=== PATIENT | female | born 1955 | race Caucasian/White ===

== ENCOUNTER 2016-10-17 09:01 | Observation (INO) | payer BC, OTHER ==
[~2016-10-17] VITALS: Ht 175.3 cm; Wt 126.8 kg
[2016-10-17] MEDS ORDERED: DILTIAZEM 5 MG/ML, 5ML ONE (10:10)
[2016-10-17 10:30] LABS: HEMOGLOBIN 13.1 g/dL (11.7-16.4)
[2016-10-17] MEDS ORDERED: DILTIAZEM 5 MG/ML, 5ML IV ONE (10:30)
[2016-10-17] MEDS ORDERED: SODIUM CHLORIDE FLUSH 10ML SYR IVF ONE (10:30)
[2016-10-17 10:38] LABS: ASPARTATE AMINO TRANSFERASE 11 U/L (15-37); BLOOD UREA NITROGEN 16 mg/dL (7-18)
[2016-10-17 10:46] LABS: IS PT STATUS REG ER OR PRE ER? YES
[2016-10-17] MEDS ORDERED: CARV12.543 PO (11:30)
[2016-10-17] MEDS ORDERED: SIMV20TA3 PO (11:33)
[2016-10-17] MEDS ORDERED: PIOG30TA4 PO (11:34)
[2016-10-17] MEDS ORDERED: ASPI-496 PO (11:34)
[2016-10-17] MEDS ORDERED: LABETALOL 5MG/ML, 20ML IV PRN (12:00)
[2016-10-17] MEDS ORDERED: DOCUSATE 100 MG CAPSULE PO PRN (12:00)
[2016-10-17] MEDS ORDERED: HYDROcodone/APAP 5/325 TABLET PO PRN (12:00)
[2016-10-17] MEDS ORDERED: POLYETHYLENE GLYCOL 17 GM PACKET PO PRN (12:00)
[2016-10-17] MEDS ORDERED: ACETAMINOPHEN 325 MG TABLET PO PRN (12:00)
[2016-10-17] MEDS ORDERED: MORPHINE SULFATE 4 MG/ML, 1ML IVPush PRN (12:00)
[2016-10-17] MEDS ORDERED: ONDANSETRON 2MG/ML, 2ML IVP PRN (12:00)
[2016-10-17] MEDS ORDERED: SODIUM CHLORIDE FLUSH 10ML SYR IVF PRN (12:00)
[2016-10-17] MEDS ORDERED: BISACODYL 10 MG SUPP PR PRN (12:00)
[2016-10-17 13:52] VITALS: BP 179/118
[2016-10-17] MEDS ORDERED: LOSA25TA5 PO (14:10)
[2016-10-17] MEDS: INSULIN REGULAR 100 UNITS/ML, 3ML VIAL SQ-INSULIN SCH ×2 (16:00→21:36)
[2016-10-17 17:30] VITALS: BP 174/122
[2016-10-17] MEDS: CARVEDILOL 25 MG TABLET PO SCH (17:43)
[2016-10-17] MEDS ORDERED: CARVEDILOL 25 MG TABLET PO SCH (18:00)
[2016-10-17 18:43] VITALS: BP 150/84
[2016-10-17 19:00] VITALS: BP 136/85
[2016-10-17] MEDS ORDERED: LOSARTAN 25MG TABLET PO SCH (21:00)
[2016-10-17] MEDS ORDERED: SIMVASTATIN 20 MG TABLET PO SCH (21:00)
[2016-10-17 21:22] VITALS: BP_SYST 150; BP_SYST 172; BP_DIAS 90; BP_DIAS 91
[2016-10-17] MEDS: APIXABAN 5 MG TABLET PO SCH (21:35)
[2016-10-17] MEDS: SODIUM CHLORIDE FLUSH 10ML SYR IVF SCH (21:35)
[2016-10-18 00:47] VITALS: BP 137/81
[2016-10-18 03:55] VITALS: BP 163/96
[2016-10-18] MEDS: CARVEDILOL 25 MG TABLET PO SCH (05:08)
[2016-10-18 06:24] LABS: BLOOD UREA NITROGEN 11 mg/dL (7-18)
[2016-10-18 07:47] VITALS: BP 140/87
[2016-10-18] MEDS ORDERED: ASPIRIN 81 MG TABLET EC PO SCH (09:00)
[2016-10-18] MEDS: SODIUM CHLORIDE FLUSH 10ML SYR IVF SCH (09:25)
[2016-10-18] MEDS: APIXABAN 5 MG TABLET PO SCH (09:25)
[2016-10-18] MEDS: INSULIN REGULAR 100 UNITS/ML, 3ML VIAL SQ-INSULIN SCH ×2 (09:25→12:18)
[2016-10-18] MEDS ORDERED: APIX5TAB PO (11:38)
[2016-10-18] MEDS ORDERED: CARV25TA12 PO (11:38)
[2016-10-18 13:57] VITALS: BP 137/84
[2016-10-18] MEDS ORDERED: CARVEDILOL 25 MG TABLET PO SCH (18:00)
== END 2016-10-18 15:52 | disposition home or self-care (01) ==
LOC: ED 10:50 → EDIP 11:40 → INTOOBSV 11:40 → 5SO 13:51
PROVIDERS: ADMIT Hospitalist; ATTEND Hospitalist
DX: I48.91 Unspecified atrial fibrillation (principal); D68.69 Other thrombophilia; E11.65 Type 2 diabetes mellitus with hyperglycemia; I13.0 Hypertensive heart and chronic kidney disease with heart failure and stage 1 through stage 4 chronic kidney disease, or unspecified chronic kidney disease; N18.3 Chronic kidney disease, stage 3 (moderate); I50.30 Unspecified diastolic (congestive) heart failure; E66.9 Obesity, unspecified; E11.22 Type 2 diabetes mellitus with diabetic chronic kidney disease; E78.5 Hyperlipidemia, unspecified; Z82.3 Family history of stroke; Z79.82 Long term (current) use of aspirin; Z83.3 Family history of diabetes mellitus; Z82.49 Family history of ischemic heart disease and other diseases of the circulatory system; Z87.891 Personal history of nicotine dependence
CPT/HCPCS: 36415; 71010; 80048; 80053; 80061; 82962; 83036; 83735; 84439; 84443; 84484; 85025; 85610; 85730; 93005; 93306; 96372; 96374; 96375; 99285; G0378; J1815

== ENCOUNTER 2016-11-20 09:33 | Day surgery (SDC) | payer BC ==
[~2016-11-20] VITALS: Ht 175.3 cm; Wt 130.0 kg
[~2016-11-20 09:33] MED LIST: APIX5TAB PO; ASPI-496 PO; CARV12.543 PO; CARV25TA12 PO; LOSA25TA5 PO; PIOG30TA4 PO; SIMV20TA3 PO
[2016-11-20] MEDS ORDERED: APIX5TAB PO (10:10)
[2016-11-20] MEDS ORDERED: CHOL100015 PO (10:10)
[2016-11-20] MEDS ORDERED: CARV-39 PO (10:10)
[2016-11-20 10:25] LABS: BLOOD UREA NITROGEN 12 mg/dL (7-18)
[2016-11-20] MEDS ORDERED: PLEASE ENTER HEIGHT AND WEIGHT MC SCH (10:30)
[2016-11-20] MEDS ORDERED: PROPOFOL 10 MG/ML, 20ML ONE (11:28)
[2016-11-20] MEDS ORDERED: SODIUM CHLORIDE FLUSH 10ML SYR IVF SCH (21:00)
== END 2016-11-20 12:40 | disposition home or self-care (01) ==
LOC: CACL 09:33
PROVIDERS: ATTEND Internal Medicine Cardiovascular Disease
DX: I48.92 Unspecified atrial flutter (principal); E11.22 Type 2 diabetes mellitus with diabetic chronic kidney disease; I12.9 Hypertensive chronic kidney disease with stage 1 through stage 4 chronic kidney disease, or unspecified chronic kidney disease; N18.3 Chronic kidney disease, stage 3 (moderate); E66.01 Morbid (severe) obesity due to excess calories; Z68.41 Body mass index [BMI] 40.0-44.9, adult; E11.65 Type 2 diabetes mellitus with hyperglycemia; E11.21 Type 2 diabetes mellitus with diabetic nephropathy; E78.5 Hyperlipidemia, unspecified; Z82.49 Family history of ischemic heart disease and other diseases of the circulatory system
CPT/HCPCS: 36415; 80048; 85610; 92960; J2704

== ENCOUNTER 2017-01-22 06:35 | Day surgery (SDC) | payer BC ==
[2017-01-21 14:51] LABS: ASPARTATE AMINO TRANSFERASE 13 U/L (15-37); BLOOD UREA NITROGEN 14 mg/dL (7-18)
[2017-01-21 15:26] VITALS: BP 155/94
[~2017-01-22] VITALS: Ht 175.3 cm; Wt 131.8 kg
[~2017-01-22 06:35] MED LIST changes: +CARV-39 PO; +CHOL100015 PO; +calcium PO
[2017-01-22] MEDS ORDERED: SODIUM CHLORIDE 0.9% 1,000 ML IV SCH (06:44)
[2017-01-22] MEDS ORDERED: MIDAZOLAM 1 MG/ML, 5ML ONE (07:24)
[2017-01-22] MEDS ORDERED: FENTANYL PF 250 MCG/5ML ONE (07:24)
[2017-01-22] MEDS ORDERED: BUPIVACAINE 0.25% ONE (08:06)
[2017-01-22] MEDS ORDERED: LABETALOL 5MG/ML, 20ML IV PRN (10:30)
[2017-01-22] MEDS ORDERED: HYDROmorphone 1 MG/ML, 1ML IV PRN (10:30)
[2017-01-22] MEDS ORDERED: PROMETHAZINE 25 MG/ML, 1ML IV PRN (10:30)
[2017-01-22] MEDS ORDERED: FENTANYL PF 100 MCG/2ML IV PRN (10:30)
[2017-01-22] MEDS ORDERED: ONDANSETRON 2MG/ML, 2ML IVPush PRN (10:30)
[2017-01-22] MEDS ORDERED: ACETAMINOPHEN 325 MG TABLET PO PRN (10:30)
[2017-01-22] MEDS ORDERED: hydrALAzine 20 MG/ML, 1ML IV PRN (10:30)
[2017-01-22] MEDS ORDERED: ALBUTEROL SULFATE 2.5 MG/3 ML NPPB PRN (10:30)
[2017-01-22] MEDS ORDERED: MIDAZOLAM 1 MG/ML, 2ML IV PRN (10:30)
[2017-01-22] MEDS ORDERED: MEPERIDINE/PF 25MG/0.5ML IVPush PRN (10:30)
[2017-01-22] MEDS ORDERED: OXYcodone 5 MG/5 ML ORAL.SOL UDC PO PRN (10:30)
[2017-01-22] MEDS ORDERED: DEXAMETHASONE 4 MG/ML, 1ML ONE (11:09)
[2017-01-22] MEDS ORDERED: ONDANSETRON 2MG/ML, 2ML ONE (11:09)
[2017-01-22] MEDS ORDERED: EPHEDRINE 50 MG/ML, 1ML ONE (11:09)
[2017-01-22] MEDS ORDERED: ROCURONIUM 10 MG/ML ONE (11:09)
[2017-01-22] MEDS ORDERED: PROPOFOL 10 MG/ML, 20ML ONE (11:09)
[2017-01-22] MEDS ORDERED: PHENYLEPHRINE 10 MG/ML ONE (11:09)
[2017-01-22] MEDS ORDERED: SUCCINYLCHOLINE 20 MG/ML, 10ML ONE (11:09)
[2017-01-22] MEDS ORDERED: hydrALAzine 20 MG/ML, 1ML ONE (11:26)
== END 2017-01-22 13:40 | disposition home or self-care (01) ==
LOC: CACL 06:35
PROVIDERS: ATTEND Internal Medicine Cardiovascular Disease
DX: I48.3 Typical atrial flutter (principal); Z98.890 Other specified postprocedural states; E78.5 Hyperlipidemia, unspecified; I10 Essential (primary) hypertension; E11.9 Type 2 diabetes mellitus without complications; E66.01 Morbid (severe) obesity due to excess calories; Z68.41 Body mass index [BMI] 40.0-44.9, adult; Z88.8 Allergy status to other drugs, medicaments and biological substances; E78.1 Pure hyperglyceridemia
CPT/HCPCS: 36415; 71020; 80053; 85025; 85610; 85730; 93005; 93613; 93621; 93653; C1730; C1731; C1766; C1894; C2630; J0330; J0360; J1100; J2250; J2370; J2405; J2704; J3010; J3490

== ENCOUNTER 2018-12-08 16:39 | Emergency (ER) | payer BC, OTHER ==
[~2018-12-08] VITALS: Ht 175.3 cm; Wt 146.6 kg
[~2018-12-08 16:39] MED LIST changes: +LOSA25TA25 PO; -LOSA25TA5 PO
[2018-12-08 17:23] LABS: BASOPHILS # (AUTO) 0.04 x10^3/uL (0-0.1); BASOPHILS % (AUTO) 1 % (0-1); EOSINOPHILS # (AUTO) 0.31 x10^3/uL (0-0.4); EOSINOPHILS % (AUTO) 4 % (1-7); LYMPHOCYTES # (AUTO) 0.99 x10^3/uL (1-3.4); LYMPHOCYTES % (AUTO) 14 % (22-44); MD NO; MEAN CORPUSCULAR HGB CONC 33.4 g/dL (32.4-35.8); MEAN CORPUSCULAR VOLUME 92.6 fL (80-100); MEAN PLATELET VOLUME 10.1 fL (7.4-10.4); MONOCYTES # (AUTO) 0.42 x10^3/uL (0.2-0.8); MONOCYTES % (AUTO) 6 % (2-9); NEUTROPHILS # (AUTO) 5.43 x10^3/uL (1.8-6.8); NEUTROPHILS % (AUTO) 76 % (42-75); PLATELET COUNT 196 x10^3/uL (130-400); RED BLOOD COUNT 4.34 x10^6/uL (3.82-5.3); RED CELL DISTRIBUTION WIDTH 15.6 % (9.6-15.2)
[2018-12-08 17:31] LABS: ANION GAP 5 mmol/L (5-15); CALCIUM 9.1 mg/dL (8.5-10.1); CHLORIDE 108 mmol/L (98-107); CREATININE 1.01 mg/dL (0.55-1.02)
--- NOTE | 2018-12-08 18:11 | NUR ---
TO ROOM FROM LOBBY. NAD.
[2018-12-08 19:31] LABS: TROPONIN I < 0.015 ng/mL (0.000-0.045)
--- NOTE | 2018-12-08 19:36 | NUR ---
PT TAKEN TO CT VIA [facility]AL[facility].
[2018-12-08] MEDS ORDERED: OMNIPAQUE 350 MG/ML, 150 ML BOTTLE ONE (20:00)
[2018-12-08 21:19] VITALS: BP 181/85
--- NOTE | 2018-12-08 21:20 | NUR ---
PT D/C WITH D/C SUMMARY. ALL QUESTIONS ANSWERED. PT DENIES ANY OTHER NEEDS PERTAINING TO THIS VISIT. PT AMBULATES TO REGISTRATION DESK WITH STEADY GAIT FOR D/C HOME.
== END 2018-12-08 21:22 | disposition home or self-care (01) ==
LOC: ED 21:16
DX: R55 Syncope and collapse (principal); I48.91 Unspecified atrial fibrillation; I10 Essential (primary) hypertension; E11.9 Type 2 diabetes mellitus without complications
CPT/HCPCS: 36415; 71275; 80048; 83735; 84484; 85025; 85379; 93005; 99284; Q9967

== ENCOUNTER 2019-02-10 08:32 | Emergency (ER) | payer OTHER ==
[~2019-02-10] VITALS: Ht 175.3 cm; Wt 140.0 kg
[2019-02-10 09:30] LABS: BASOPHILS # (AUTO) 0.04 x10^3/uL (0-0.1); BASOPHILS % (AUTO) 1 % (0-1); EOSINOPHILS # (AUTO) 0.55 x10^3/uL (0-0.4); EOSINOPHILS % (AUTO) 8 % (1-7); LYMPHOCYTES # (AUTO) 0.93 x10^3/uL (1-3.4); LYMPHOCYTES % (AUTO) 13 % (22-44); MD NO; MEAN CORPUSCULAR HEMOGLOBIN 30.8 pg (27.0-34.8); MEAN CORPUSCULAR HGB CONC 32.4 g/dL (32.4-35.8); MEAN CORPUSCULAR VOLUME 95.1 fL (80-100); MEAN PLATELET VOLUME 8.9 fL (7.4-10.4); MONOCYTES # (AUTO) 0.58 x10^3/uL (0.2-0.8); MONOCYTES % (AUTO) 8 % (2-9); NEUTROPHILS # (AUTO) 5.04 x10^3/uL (1.8-6.8); NEUTROPHILS % (AUTO) 71 % (42-75); PLATELET COUNT 204 x10^3/uL (130-400); RED BLOOD COUNT 4.07 x10^6/uL (3.82-5.3); RED CELL DISTRIBUTION WIDTH 16.1 % (9.6-15.2)
[2019-02-10 09:42] LABS: ALBUMIN 3.5 g/dL (3.4-5.0); ANION GAP 7 mmol/L (5-15); CALCIUM 9.2 mg/dL (8.5-10.1); CHLORIDE 106 mmol/L (98-107); CREATININE 1.07 mg/dL (0.55-1.02)
[2019-02-10 09:46] LABS: TROPONIN I < 0.015 ng/mL (0.000-0.045)
--- NOTE | 2019-02-10 09:54 | NUR ---
pt upright on gurney awake & comfortable, responds approp to staff, NAD, comfort measures provided, call light within reach.
[2019-02-10 11:16] VITALS: BP 185/69
--- NOTE | 2019-02-10 11:21 | NUR ---
Patient given discharge instructions and they have confirmed that they understand the instructions. Patient ambulatory with steady gait.
== END 2019-02-10 11:40 | disposition home or self-care (01) ==
LOC: ED 09:16
DX: F41.1 Generalized anxiety disorder (principal); R42 Dizziness and giddiness; I10 Essential (primary) hypertension; E11.21 Type 2 diabetes mellitus with diabetic nephropathy; I48.91 Unspecified atrial fibrillation
CPT/HCPCS: 36415; 71045; 80048; 82040; 83880; 84484; 85025; 93005; 99284

== ENCOUNTER → 2020-02-13 | Outpatient (CLI) | payer OTHER ==
[~2020-02-13] MED LIST changes: -PIOG30TA4 PO; +PIOG30TA68 PO; +SIMV20TA19 PO; -SIMV20TA3 PO
== END | disposition home or self-care (01) ==
LOC: CVU 07:41
PROVIDERS: ATTEND Internal Medicine Cardiovascular Disease
DX: I08.3 Combined rheumatic disorders of mitral, aortic and tricuspid valves (principal); I27.20 Pulmonary hypertension, unspecified; R06.02 Shortness of breath
CPT/HCPCS: 93306

== ENCOUNTER 2020-05-14 05:01 | Emergency (ER) | payer OTHER ==
[~2020-05-14] VITALS: Ht 177.8 cm; Wt 138.4 kg
[2020-05-14] MEDS ORDERED: ASPIRIN 81 MG TABLET CHEW PO ONE (05:30)
[2020-05-14] MEDS ORDERED: NITROGLYCERIN SINGLE TAB 0.4 MG SL PRN (05:30)
[2020-05-14] MEDS ORDERED: SODIUM CHLORIDE FLUSH 10ML SYR IVF ONE (05:30)
[2020-05-14] MEDS ORDERED: NITROGLYCERIN SINGLE TAB 0.4 MG SL ONE (05:43)
[2020-05-14] MEDS ORDERED: ASPIRIN 81 MG TABLET CHEW ONE (05:44)
[2020-05-14 05:57] LABS: BASOPHILS % (AUTO) 1 % (0-1); EOSINOPHILS % (AUTO) 8 % (1-7); LYMPHOCYTES % (AUTO) 22 % (22-44); MEAN CORPUSCULAR HEMOGLOBIN 31.1 pg (27.0-34.8); MEAN CORPUSCULAR HGB CONC 32.9 g/dL (32.4-35.8); MEAN PLATELET VOLUME 9.8 fL (7.4-10.4); MONOCYTES % (AUTO) 10 % (2-9); NEUTROPHILS % (AUTO) 59 % (42-75); PLATELET COUNT 193 x10^3/uL (130-400); RED BLOOD COUNT 4.17 x10^6/uL (3.82-5.3); RED CELL DISTRIBUTION WIDTH 15.1 % (9.6-15.2)
[2020-05-14 06:06] LABS: ALANINE AMINOTRANSFERASE 14 U/L (12-78); ALBUMIN 3.1 g/dL (3.4-5.0); ANION GAP 3 mmol/L (5-15); CALCIUM 8.7 mg/dL (8.5-10.1); CHLORIDE 104 mmol/L (98-107)
[2020-05-14 06:11] LABS: ALKALINE PHOSPHATASE 105 U/L (45-117); BILIRUBIN,TOTAL 0.7 mg/dL (0.2-1.0); TOTAL PROTEIN 7.7 g/dL (6.4-8.2); TROPONIN I < 0.015 ng/mL (0.000-0.045)
[2020-05-14 06:20] LABS: MD NO
--- NOTE | 2020-05-14 07:07 | NUR ---
REPORT FROM KARIE DIXON, PT RESTING IN [facility] ON MONITOR WITH AT BEDSIDE. REPEAT TROPO DRAWN, AWAITING RESULTS.
[2020-05-14 07:20] LABS: TROPONIN I < 0.015 ng/mL (0.000-0.045)
[2020-05-14] MEDS ORDERED: LORazepam 1MG TABLET ONE (07:54)
[2020-05-14] MEDS ORDERED: CARVEDILOL 12.5 MG TABLET ONE (07:54)
[2020-05-14 07:57] VITALS: BP 173/98
--- NOTE | 2020-05-14 07:58 | NUR ---
PT C/O SHOULDER PAIN AND ANXIETY, MD NOTIFIED. PT MEDICATED PER OCT, REPEAT EKG DONE
[2020-05-14] MEDS ORDERED: CARVEDILOL 25 MG TABLET PO ONE (08:00)
[2020-05-14] MEDS ORDERED: LORazepam 1MG TABLET PO ONE (08:00)
--- NOTE | 2020-05-14 08:15 | NUR ---
Nicholas RN note: This RN answered pt's call light. Pt reports she needs to use the restroom. Pt ambulatory to bathroom and back to bed without difficulty, gait steady. Pt able to position self for comfort in bed. All monitors reapplied, all safety measures observed. Pt denies other needs.
== END 2020-05-14 08:36 | disposition home or self-care (01) ==
LOC: ED 07:27
DX: R07.89 Other chest pain (principal); I48.91 Unspecified atrial fibrillation; R94.31 Abnormal electrocardiogram [ECG] [EKG]; I10 Essential (primary) hypertension; E11.9 Type 2 diabetes mellitus without complications
CPT/HCPCS: 36415; 71045; 80053; 83735; 83880; 84484; 85025; 93005; 99285

== ENCOUNTER 2020-07-14 10:32 | Observation (INO) | payer OTHER ==
[~2020-07-14] VITALS: Ht 175.3 cm; Wt 103.9 kg
--- NOTE | 2020-07-14 11:01 | NUR ---
PT TO ROOM AT THIS TIME.
--- NOTE | 2020-07-14 11:18 | NUR ---
pt presentts to ED with c/o high bp readings on home monitor x 2 days, (highest 160/120) states BP cuff told her she was in afib. pt has paroxysmal afib hx. pt states she felt near syncopal this am, denies CP. pt is a&o, resps even and unlabored. pt is neurologically intact, no focal weakness noted, no drift, bilteral grasp equal. EKG taken in triage, all monitors in place. EDMD Law at bedside for eval. call light in reach.
[2020-07-14 11:30] LABS: BASOPHILS % (AUTO) 1 % (0-1); EOSINOPHILS % (AUTO) 3 % (1-7); LYMPHOCYTES % (AUTO) 15 % (22-44); MEAN CORPUSCULAR HEMOGLOBIN 31.5 pg (27.0-34.8); MEAN CORPUSCULAR HGB CONC 33.1 g/dL (32.4-35.8); MEAN PLATELET VOLUME 9.6 fL (7.4-10.4); MONOCYTES % (AUTO) 7 % (2-9); NEUTROPHILS % (AUTO) 74 % (42-75); PLATELET COUNT 215 x10^3/uL (130-400); RED BLOOD COUNT 4.19 x10^6/uL (3.82-5.3); RED CELL DISTRIBUTION WIDTH 14.6 % (9.6-15.2)
[2020-07-14 11:32] LABS: MD NO
[2020-07-14 11:42] LABS: ALANINE AMINOTRANSFERASE 14 U/L (12-78); ALBUMIN 3.2 g/dL (3.4-5.0); ANION GAP 6 mmol/L (5-15); CALCIUM 8.9 mg/dL (8.5-10.1); CHLORIDE 106 mmol/L (98-107); CREATININE 1.15 mg/dL (0.55-1.02)
[2020-07-14 11:45] LABS: ALKALINE PHOSPHATASE 90 U/L (45-117); BILIRUBIN,TOTAL 0.9 mg/dL (0.2-1.0); TOTAL PROTEIN 7.9 g/dL (6.4-8.2)
[2020-07-14 12:24] LABS: TROPONIN I < 0.015 ng/mL (0.000-0.045)
--- NOTE | 2020-07-14 12:40 | NUR ---
PT RESTING ON GURNEY, A&O, RESPS EVEN AND UNLABORED. SINUS CURT RATE 50'S ON MAGNETO SPECIALIST WITH NO ECTOPY NOTED. PT GIVEN WARM BLANKET. CALL LIGHT IN REACH. CHART UP FOR RECHECK. AWAITING MD AND DISPO.
[2020-07-14] MEDS ORDERED: SODIUM CHLORIDE 0.9% 1,000 ML IV ONE (13:30)
[2020-07-14] MEDS ORDERED: vitamin d PO (14:31)
[2020-07-14] MEDS ORDERED: HYDR25TA6 PO (14:31)
--- NOTE | 2020-07-14 14:32 | NUR ---
med rec completed, pt a&o, resps even and unlabored. pt denies pain. call light in reach. pt updated with results and poc by . pt awaiting hospitalist assessment and admit bed assignment.
--- NOTE | 2020-07-14 16:31 | NUR ---
hospital bed requested from housekeeping. admitting MD Lazo notified that pt has not been seen by admitting hospitalist, no admit orders present. per [place], MD East is admitting. MD East notified that pt has been assigned to him and requires admit orders.
--- NOTE | 2020-07-14 16:50 | NUR ---
report given to RN Ole at bedside. hospitalist at bedside for admit assessment.
[2020-07-14] MEDS ORDERED: CYCLOBENZAPRINE 10 MG TABLET PO PRN (17:00)
[2020-07-14] MEDS ORDERED: GUAIFENESIN/DM 200-20MG, 10ML UDC PO PRN (17:00)
[2020-07-14] MEDS ORDERED: morphine SULFATE 10 MG/ML, 1ML IVPush PRN (17:00)
[2020-07-14] MEDS ORDERED: ACETAMINOPHEN 325 MG TABLET PO PRN (17:00)
[2020-07-14] MEDS ORDERED: hydrALAzine 20 MG/ML, 1ML IVPush PRN (17:00)
[2020-07-14] MEDS ORDERED: HYDROcodone/APAP 5/325 TABLET PO PRN (17:00)
[2020-07-14] MEDS ORDERED: ZOLPIDEM 5MG TABLET PO PRN (17:00)
[2020-07-14] MEDS ORDERED: ENOXAPARIN 40 MG/0.4 ML SQ SCH (17:00)
[2020-07-14] MEDS ORDERED: ONDANSETRON 2MG/ML, 2ML IVPush PRN (17:00)
[2020-07-14] MEDS ORDERED: DOCUSATE 100 MG CAPSULE PO PRN (17:00)
[2020-07-14] MEDS ORDERED: ENOXAPARIN 40 MG/0.4 ML ONE (17:47)
--- NOTE | 2020-07-14 17:50 | NUR ---
INSULIN REQUESTED FROM PHARMACY.
[2020-07-14] MEDS: INSULIN LISPRO 100 UNITS/ML, PEN SQ-INSULIN SCH ×2 (18:44→21:51)
--- NOTE | 2020-07-14 19:06 | NUR ---
PT ATE 100% OF DINNER MEAL.
[2020-07-14 19:30] LABS: TROPONIN I < 0.015 ng/mL (0.000-0.045)
[2020-07-14] MEDS ORDERED: SIMVASTATIN 20 MG TABLET PO SCH (21:00)
[2020-07-14] MEDS ORDERED: FAMOTIDINE 20 MG TABLET ONE (21:10)
[2020-07-14] MEDS: FAMOTIDINE 20 MG TABLET PO SCH (21:50)
[2020-07-14] MEDS: CARVEDILOL 25 MG TABLET PO SCH (21:50)
--- NOTE | 2020-07-14 21:57 | NUR ---
PT MEDICATED PER MAR, ALL NEEDS MET AT THIS TIME.
--- NOTE | 2020-07-14 23:01 | NUR ---
REPORT TO BABAK DIXON.
[2020-07-15 00:02] VITALS: BP 151/77
[2020-07-15] MEDS ORDERED: IRBE300T8 PO (00:05)
[2020-07-15 00:07] VITALS: BP 151/77
[2020-07-15 06:03] LABS: ANION GAP 3 mmol/L (5-15); BASOPHILS % (AUTO) 1 % (0-1); CALCIUM 8.3 mg/dL (8.5-10.1); CHLORIDE 107 mmol/L (98-107); CREATININE 1.02 mg/dL (0.55-1.02); EOSINOPHILS % (AUTO) 4 % (1-7); LYMPHOCYTES % (AUTO) 19 % (22-44); MEAN CORPUSCULAR HEMOGLOBIN 31.9 pg (27.0-34.8); MEAN CORPUSCULAR HGB CONC 33.1 g/dL (32.4-35.8); MONOCYTES % (AUTO) 11 % (2-9); NEUTROPHILS % (AUTO) 65 % (42-75); PLATELET COUNT 183 x10^3/uL (130-400); RED CELL DISTRIBUTION WIDTH 14.6 % (9.6-15.2)
[2020-07-15 06:25] LABS: MD NO
[2020-07-15] MEDS: INSULIN LISPRO 100 UNITS/ML, PEN SQ-INSULIN SCH ×2 (06:38→11:41)
[2020-07-15 08:02] VITALS: BP 147/77
[2020-07-15 08:03] VITALS: BP 149/78
[2020-07-15 08:04] VITALS: BP 139/80
[2020-07-15] MEDS ORDERED: FAMOTIDINE 40 MG TABLET ONE (08:57)
[2020-07-15] MEDS ORDERED: ERGOCALCIFEROL 50,000 UNIT CAPSULE PO SCH (09:00)
[2020-07-15] MEDS ORDERED: PIOGLITAZONE 15 MG TABLET PO SCH (09:00)
[2020-07-15] MEDS ORDERED: HYDROCHLOROTHIAZIDE 25 MG TABLET PO SCH (09:00)
[2020-07-15] MEDS: FAMOTIDINE 20 MG TABLET PO SCH (09:06)
[2020-07-15] MEDS: CARVEDILOL 25 MG TABLET PO SCH (09:06)
[2020-07-15 12:30] VITALS: BP 118/65
== END 2020-07-15 14:30 | disposition home or self-care (01) ==
LOC: ED 11:27 → EDIP 15:23 → INTOOBSV 15:23 → 5SO 23:57 → DCLOUNGE 07-15 14:20
PROVIDERS: ADMIT Internal Medicine; ATTEND Internal Medicine
DX: R55 Syncope and collapse (principal); I48.0 Paroxysmal atrial fibrillation; I13.0 Hypertensive heart and chronic kidney disease with heart failure and stage 1 through stage 4 chronic kidney disease, or unspecified chronic kidney disease; E11.22 Type 2 diabetes mellitus with diabetic chronic kidney disease; I50.9 Heart failure, unspecified; N18.9 Chronic kidney disease, unspecified; E78.5 Hyperlipidemia, unspecified; E55.9 Vitamin D deficiency, unspecified; E66.01 Morbid (severe) obesity due to excess calories; I34.0 Nonrheumatic mitral (valve) insufficiency; Z79.899 Other long term (current) drug therapy; Z68.41 Body mass index [BMI] 40.0-44.9, adult
CPT/HCPCS: 36415; 71045; 80048; 80053; 82962; 83735; 84100; 84443; 84484; 85025; 93005; 93306; 96360; 96361; 96372; 99285; G0378; J1650; J1815; J7030

== ENCOUNTER 2020-09-03 10:00 | Inpatient (IN) | payer OTHER ==
[~2020-09-03] VITALS: Ht 175.3 cm; Wt 136.6 kg
[~2020-09-03 10:00] MED LIST changes: +HYDR25TA6 PO; +IRBE300T8 PO; +vitamin d PO
[2020-09-03 11:10] VITALS: BP 150/81
[2020-09-03 12:30] VITALS: BP 169/75
[2020-09-03] MEDS ORDERED: ONDANSETRON 2MG/ML, 2ML IVPush PRN (12:30)
[2020-09-03] MEDS ORDERED: BISACODYL 5 MG EC TABLET PO PRN (12:30)
[2020-09-03] MEDS ORDERED: ZOLPIDEM 5MG TABLET PO PRN (12:30)
[2020-09-03] MEDS ORDERED: ACETAMINOPHEN 325 MG TABLET PO PRN (12:30)
[2020-09-03] MEDS ORDERED: BISACODYL 10 MG SUPP PR PRN (12:30)
[2020-09-03] MEDS: SOTALOL 80MG TABLET PO SCH (12:32)
[2020-09-03] MEDS ORDERED: APIX5TAB PO (12:35)
[2020-09-03] MEDS ORDERED: ASPI81TA45 PO (12:36)
[2020-09-03] MEDS ORDERED: INSU100V35 SQ (12:37)
[2020-09-03 13:35] LABS: ANION GAP 4 mmol/L (5-15); CALCIUM 9.5 mg/dL (8.5-10.1); CHLORIDE 103 mmol/L (98-107)
[2020-09-03 13:47] LABS: CHOL/HDL RATIO 2.7; CHOLESTEROL, TOTAL 124 mg/dL (140-239); CREATININE 1.05 mg/dL (0.55-1.02); FREE T4 (FREE THYROXINE) 1.48 ng/dL (0.76-1.46); HDL CHOL % 37 % (28-40); HDL CHOLESTEROL (DIRECT) 46 mg/dL (40-60); LDL CHOLESTEROL,CALCULATED 60 mg/dL (54-169); LDL/HDL RATIO 1.3 (0.5-3.0); TRIGLYCERIDES 89 mg/dL (50-200); TROPONIN I < 0.015 ng/mL (0.000-0.045); VLDL CHOLESTEROL 18 mg/dL (0-25)
[2020-09-03 18:46] LABS: TROPONIN I < 0.015 ng/mL (0.000-0.045)
[2020-09-03] MEDS: SIMVASTATIN 20 MG TABLET PO SCH (20:23)
[2020-09-03] MEDS: APIXABAN 5 MG TABLET PO SCH (20:23)
[2020-09-03] MEDS: SODIUM CHLORIDE FLUSH 10ML SYR IVF SCH (20:24)
[2020-09-03 20:28] VITALS: BP 155/65
[2020-09-03] MEDS: INSULIN LISPRO 100 UNITS/ML, PEN SQ-INSULIN SCH (21:00)
[2020-09-04 00:07] LABS: TROPONIN I < 0.015 ng/mL (0.000-0.045)
[2020-09-04 00:42] VITALS: BP 150/68
[2020-09-04] MEDS: SOTALOL 80MG TABLET PO SCH ×2 (00:42→13:09)
[2020-09-04 07:38] VITALS: BP 140/76
[2020-09-04] MEDS: APIXABAN 5 MG TABLET PO SCH (08:06)
[2020-09-04] MEDS: SODIUM CHLORIDE FLUSH 10ML SYR IVF SCH ×2 (08:07→19:57)
[2020-09-04] MEDS: PIOGLITAZONE 15 MG TABLET PO SCH (08:07)
[2020-09-04] MEDS: INSULIN LISPRO 100 UNITS/ML, PEN SQ-INSULIN SCH ×4 (08:09→21:00)
[2020-09-04] MEDS ORDERED: HYDROCHLOROTHIAZIDE 25 MG TABLET PO SCH (09:00)
[2020-09-04] MEDS ORDERED: IRBESARTAN 150 MG TABLET PO SCH (09:00)
[2020-09-04] MEDS ORDERED: CEFAZOLIN PMX 1GM/50ML 50 ML IVPB ONE (10:00)
[2020-09-04 13:30] VITALS: BP 140/78
[2020-09-04] MEDS: SIMVASTATIN 20 MG TABLET PO SCH (19:57)
[2020-09-04 20:00] VITALS: BP 141/67
[2020-09-05] MEDS: SOTALOL 80MG TABLET PO SCH ×2 (00:24→12:36)
[2020-09-05 00:29] VITALS: BP 156/81
[2020-09-05] MEDS ORDERED: MIDAZOLAM 1 MG/ML, 5ML ONE (07:02)
[2020-09-05] MEDS ORDERED: CEFAZOLIN PMX 1GM/50ML 50 ML ONE (07:02)
[2020-09-05] MEDS ORDERED: FENTANYL PF 100 MCG/2ML ONE (07:02)
[2020-09-05] MEDS ORDERED: LIDOCAINE 1%, 20ML ONE (07:03)
[2020-09-05] MEDS ORDERED: CEFAZOLIN 1,000 MG ONE (07:03)
[2020-09-05] MEDS: INSULIN LISPRO 100 UNITS/ML, PEN SQ-INSULIN SCH ×4 (07:47→21:00)
[2020-09-05] MEDS ORDERED: IRBESARTAN 150 MG TABLET PO SCH (09:00)
[2020-09-05] MEDS ORDERED: ERGOCALCIFEROL 50,000 UNIT CAPSULE PO SCH (09:30)
[2020-09-05] MEDS ORDERED: ACETAMINOPHEN 325 MG TABLET PO PRN (09:30)
[2020-09-05] MEDS ORDERED: HOLD MEDICATION MC PRN (09:30)
[2020-09-05] MEDS ORDERED: HYDROCHLOROTHIAZIDE 25 MG TABLET PO SCH (09:30)
[2020-09-05 09:37] VITALS: BP 130/60
[2020-09-05] MEDS: PIOGLITAZONE 15 MG TABLET PO SCH (10:44)
[2020-09-05] MEDS: SODIUM CHLORIDE FLUSH 10ML SYR IVF SCH ×3 (10:44→21:00)
[2020-09-05 13:09] VITALS: BP 95/57
[2020-09-05] MEDS: CEFAZOLIN PMX 1GM/50ML 50 ML IVPB SCH ×2 (15:09→23:29)
[2020-09-05 20:00] VITALS: BP 129/75
[2020-09-05] MEDS ORDERED: SIMVASTATIN 20 MG TABLET PO SCH (21:00)
[2020-09-05] MEDS ORDERED: CARVEDILOL 12.5 MG TABLET PO SCH (21:00)
[2020-09-05] MEDS ORDERED: INSULIN GLARGINE 100 UNITS/ML, PEN SQ-INSULIN SCH (21:14)
[2020-09-06] MEDS: SOTALOL 80MG TABLET PO SCH ×2 (00:38→12:19)
[2020-09-06 01:08] VITALS: BP 136/78
[2020-09-06 07:53] VITALS: BP 168/98
[2020-09-06] MEDS ORDERED: IRBE300T8 PO (08:48)
[2020-09-06] MEDS ORDERED: SOTA80TA18 PO (08:48)
[2020-09-06] MEDS ORDERED: ASPIRIN 81 MG TABLET EC PO SCH (09:00)
[2020-09-06] MEDS ORDERED: HYDROCHLOROTHIAZIDE 25 MG TABLET PO SCH (09:00)
[2020-09-06] MEDS ORDERED: IRBESARTAN 150 MG TABLET PO SCH ×2 (09:00)
[2020-09-06] MEDS ORDERED: PIOGLITAZONE 15 MG TABLET PO SCH (09:00)
[2020-09-06] MEDS: INSULIN LISPRO 100 UNITS/ML, PEN SQ-INSULIN SCH ×2 (09:28→12:19)
[2020-09-06] MEDS: SODIUM CHLORIDE FLUSH 10ML SYR IVF SCH ×2 (09:29)
[2020-09-06] MEDS: PIOGLITAZONE 15 MG TABLET PO SCH (09:29)
[2020-09-06 12:26] VITALS: BP 165/83
[2020-09-07] MEDS ORDERED: IRBESARTAN 150 MG TABLET PO SCH (09:00)
== END 2020-09-06 14:15 | disposition home or self-care (01) | DRG 244 ==
LOC: 5SO 10:42 → DCLOUNGE 09-06 14:07
PROVIDERS: ADMIT Internal Medicine Cardiovascular Disease; ATTEND Internal Medicine Cardiovascular Disease
PROC: 0JH606Z Insertion of Pacemaker, Dual Chamber into Chest Subcutaneous Tissue and Fascia, Open Approach (ICD-10-PCS; principal; 2020-09-05)
PROC: 02H63JZ Insertion of Pacemaker Lead into Right Atrium, Percutaneous Approach (ICD-10-PCS; 2020-09-05)
PROC: 02HK3JZ Insertion of Pacemaker Lead into Right Ventricle, Percutaneous Approach (ICD-10-PCS; 2020-09-05)
DX: I49.5 Sick sinus syndrome (principal); I48.91 Unspecified atrial fibrillation; E11.9 Type 2 diabetes mellitus without complications; E78.5 Hyperlipidemia, unspecified; I10 Essential (primary) hypertension; Z79.01 Long term (current) use of anticoagulants; Z87.891 Personal history of nicotine dependence; Z79.899 Other long term (current) drug therapy; Z79.891 Long term (current) use of opiate analgesic
CPT/HCPCS: 33208; 36005; 36415; J3490; 71045; 71046; 80048; 80061; 82962; 84439; 84443; 84484; 85014; 85018; 93005; 99156; 99157; C1779; C1785; C1892; G0378; J0690; J2250; J3010; J1815; Q9967